=== PATIENT | male | born 1980 | race American Indian/Alaskan Native ===

== ENCOUNTER 2016-05-03 21:12 | Emergency (ER) | payer OTHER ==
[2016-05-03 22:58] LABS: Basophils % (Auto) 0.4 % (0.0-1.8); Eosinophils % (Auto) 2.7 % (0.0-4.3); Hematocrit 41.3 % (35.5-45.6); Hemoglobin 13.5 gm/dl (11.8-15.2); Mean Corpuscular HGB Conc 33 % (32-34); Mean Corpuscular Hemoglobin 30 pg (28-32); Mean Corpuscular Volume 92 fl (84-94); Platelet Count 256 K/mm3 (140-440); Red Blood Count 4.47 M/mm3 (3.65-5.03); Red Cell Distribution Width 13.4 % (13.2-15.2); White Blood Count 5.9 K/mm3 (4.5-11.0)
[2016-05-03 23:07] LABS: Anion Gap 19 mmol/L; Blood Urea Nitrogen 11 mg/dL (9-20); Calcium 9.1 mg/dL (8.4-10.2); Carbon Dioxide 24 mmol/L (22-30); Chloride 99.4 mmol/L (98-107); Glucose 133 mg/dL (75-100); Potassium 3.6 mmol/L (3.6-5.0); Sodium 139 mmol/L (137-145)
[2016-05-04] MEDS ORDERED: NACL 0.9% 1000 ML 1,000 ML IV ONE (00:48)
[2016-05-04 00:56] LABS: Urine Drugs of Abuse Note Disclamer
[2016-05-04 01:04] VITALS: BP 147/84
--- NOTE | 2016-05-04 01:06 | Emergency Department Report ---
ED Shortness of Breath HPI - General Chief Complaint: Dyspnea/Respdistress Stated Complaint: VOMITING, CHEST PAIN Source: patient Mode of arrival: Ambulatory Limitations: No Limitations - History of Present Illness Initial Comments: 35 year old male with no significant past medical history presents to the hospital with complaints of shortness of breath and felt like his throat was closing. Symptoms started all of a sudden tonight. Patient admits to drinking alcohol about 8 PM and also smoking weed which was laced with another drug. Patient states he has not smoked weed and greater than 10 years. Symptoms started after substance use in after patient had several episodes of vomiting. Patient does not appear to be in any acute distress but states he has intermittent shortness of breath. He feels like his throat is little tight but wants to drink water. He also expresses concern about being dehydrated because he was outside in the heat earlier. He states he has been tolerating water intake throughout the day. - Related Data Home Medications Medication Instructions Recorded Confirmed Last Taken No Known Home Medications [No 05/03/16 05/03/16 Unknown Reported Home Medications] Allergies Allergy/AdvReac Type Severity Reaction Status Date / Time No Known Allergies Allergy Unverified 05/03/16 21:48 ED Review of Systems ROS: Stated complaint: VOMITING, CHEST PAIN Other details as noted in HPI Comment: All other systems reviewed and negative Other: Constitutional: No fevers chills Eyes: No eye pain visual changes ENT: as per hpi Neck: Denies pain Respiratory: Denies cough Cardiovascular: Denies chest pain, palpitations, syncope GI: Denies abdominal pain, nausea, vomiting, diarrhea : Denies dysuria Musculoskeletal: Denies back pain Skin: Denies rash, lesions, erythema Neurologic: Denies headache, numbness, weakness ED Past Medical Hx - Past Medical History Previous Medical History?: No - Surgical History Past Surgical History?: Yes Additional Surgical History: bilateral bungions - Social History Smoking Status: Current Some Day Smoker Substance Use Type: Alcohol - Medications Home Medications: Home Medications Medication Instructions Recorded Confirmed Last Taken Type No Known Home Medications [No 05/03/16 05/03/16 Unknown History Reported Home Medications] ED Physical Exam - General Limitations: No Limitations - Other Other exam information: General: No limitations, patient is alert in no acute distress Head exam: Atraumatic, normocephalic Eyes exam: Normal appearance, pupils equal reactive to light, extraocular movements intact ENT: Moist mucous membrane, normal oropharynx Neck exam: Normal inspection, full range of motion, no meningismus nontender Respiratory exam: Clear to auscultation bilateral, no wheezes, rales, crackles Cardiovascular: Normal rate and rhythm, normal heart sounds Abdomen: Soft, nondistended, and nontender, with normal bowel sounds, no rebound, or guarding Extremity: Full range of motion normal inspection no deformity Back: Normal Inspection, full range of motion, no tenderness Neurologic: Alert, oriented x3, cranial nerves intact, no motor or sensory deficit Psychiatric: normal affect, normal mood Skin: Warm, dry, intact ED Course Vital Signs 05/03/16 05/03/16 05/03/16 21:42 22:00 22:05 Temperature 97.6 F Pulse Rate 87 Respiratory 20 Rate Blood Pressure 150/81 O2 Sat by Pulse 97 99 99 Oximetry 05/03/16 05/03/16 05/03/16 22:06 22:10 22:16 Temperature Pulse Rate 85 85 90 Respiratory 21 12 11 L Rate Blood Pressure 158/82 158/82 158/82 O2 Sat by Pulse 99 100 100 Oximetry 05/03/16 05/03/16 05/03/16 22:32 22:46 23:00 Temperature Pulse Rate 87 83 80 Respiratory 14 16 Rate Blood Pressure 158/82 158/82 158/82 O2 Sat by Pulse 100 99 Oximetry 05/03/16 05/03/16 05/03/16 23:16 23:30 23:46 Temperature Pulse Rate 81 79 84 Respiratory 11 L 12 12 Rate Blood Pressure 158/82 158/82 147/84 O2 Sat by Pulse 99 100 98 Oximetry 05/04/16 05/04/16 05/04/16 00:00 00:16 00:30 Temperature Pulse Rate Respiratory 15 11 L 11 L Rate Blood Pressure 147/84 147/84 147/84 O2 Sat by Pulse 99 100 99 Oximetry 05/04/16 00:46 Temperature Pulse Rate Respiratory 11 L Rate Blood Pressure 147/84 O2 Sat by Pulse 99 Oximetry - Reevaluation(s) Reevaluation #1: 05/04/16 01:06 1 L normal saline order ED Medical Decision Making - Lab Data Result diagrams: 05/03/16 22:10 05/03/16 22:10 Strep negative - EKG Data -: EKG Interpreted by Me (sinus rate 79) - Radiology Data Radiology results: image reviewed (chest x-ray: No acute finding) - Medical Decision Making Pt tolerating po intake without difficulty sx improved with IVF. Pt noted to have BP elevation. Pt informed to have his bp rechecked by pmd - Differential Diagnosis drug reaction, allergic reaction, GERD, anxiety, dehydration Critical Care Time: No Critical care attestation.: If time is entered above; I have spent that time in minutes in the direct care of this critically ill patient, excluding procedure time. ED Disposition Clinical Impression: Marijuana use, Sore throat, Alcohol use, Elevated BP Vomiting Qualifiers: Vomiting type: unspecified Vomiting Intractability: non-intractable Disposition: DISCHARGED TO HOME OR SELFCARE Is pt being admited?: No Does the pt Need Aspirin: No Condition: Stable Instructions: Acute Nausea and Vomiting (ED), Cannabis Abuse (ED), How to Take a Blood Pressure (ED) Additional Instructions: Take the medication as prescribed. Avoid alcohol and drug use. Follow up with a primary care doctor for further evaluation of your elevated blood pressure. If it continues to be elevated you will need medication for treatment Referrals: RENNY AGLLARDO MD [Staff Physician] - 3-5 Days Time of Disposition: 01:41
--- NOTE | 2016-05-04 10:49 | XRay Report ---
CHEST TWO VIEWS: 05/03/16 21:12:00 CLINICAL: Shortness of breath. COMPARISON: None FINDINGS: Normal heart and pulmonary vasculature. The lungs are normally expanded and clear. The bones and soft tissues are normal. IMPRESSION: Normal chest.
== END 2016-05-04 01:45 | disposition home or self-care (01) ==
LOC: ED 21:12
DX: J02.9 Acute pharyngitis, unspecified (principal); R03.0 Elevated blood-pressure reading, without diagnosis of hypertension; F10.99 Alcohol use, unspecified with unspecified alcohol-induced disorder; F12.90 Cannabis use, unspecified, uncomplicated; R11.10 Vomiting, unspecified; Z72.0 Tobacco use
CPT/HCPCS: 36415; 71020; 80048; 80307; 84484; 85025; 87116; 87430; 93005; 93010; 96360; 96361; 99285; G0480; J7030; 80320